=== PATIENT | female | born 1975 | race Caucasian/White ===

== ENCOUNTER 2022-04-07 11:58 | Outpatient (REF) | payer BC, SELFPAY ==
--- NOTE | ~2022-04-07 | XR_ITS ---
EXAMINATION: XR FOOT, RIGHT XR TOE, RIGHT CLINICAL INFORMATION: Fracture right toe. Follow-up. COMPARISON: Right foot 04/07/2022. TECHNIQUE: 3 views right foot and 2 views right toe. FINDINGS: Right Toe: There is an oblique, slowly healing fracture distal and proximal phalanges 3rd digit with callus formation. No additional fracture seen. The soft tissues are normal. Right Foot: The ankle mortise and subtalar joints are normal. Again visualized is an oblique fracture distal and proximal phalanges 5th digit with mild soft tissue swelling. No additional bony abnormality seen. The soft tissues are normal. XR/XR toe RT min 2V IMPRESSION: Oblique fracture distal and proximal phalanges 5th digit with mild soft tissue swelling. Unremarkable rest of the right foot.
--- NOTE | ~2022-04-07 | XR_ITS ---
EXAMINATION: XR FOOT, RIGHT XR TOE, RIGHT CLINICAL INFORMATION: Fracture right toe. Follow-up. COMPARISON: Right foot 04/07/2022. TECHNIQUE: 3 views right foot and 2 views right toe. FINDINGS: Right Toe: There is an oblique, slowly healing fracture distal and proximal phalanges 3rd digit with callus formation. No additional fracture seen. The soft tissues are normal. Right Foot: The ankle mortise and subtalar joints are normal. Again visualized is an oblique fracture distal and proximal phalanges 5th digit with mild soft tissue swelling. No additional bony abnormality seen. The soft tissues are normal. XR/XR foot RT 2V IMPRESSION: Oblique fracture distal and proximal phalanges 5th digit with mild soft tissue swelling. Unremarkable rest of the right foot.
== END 2022-04-07 11:59 | disposition home or self-care (01) ==
LOC: HO.HMGCX 11:58
PROVIDERS: Visit Provider Nurse Practitioner Acute Care
DX: S92.911A Unspecified fracture of right toe(s), initial encounter for closed fracture (principal); X58.XXXA Exposure to other specified factors, initial encounter; Y93.9 Activity, unspecified; Y92.9 Unspecified place or not applicable; Y99.9 Unspecified external cause status
CPT/HCPCS: 73620; 73660

== ENCOUNTER 2023-02-21 14:50 | Outpatient (REF) | payer BC, SELFPAY | END 2023-02-21 14:51 | disposition home or self-care (01) | LOC: HO.LAB 14:50 | PROVIDERS: PCP Family Medicine; Visit Provider Otolaryngology | DX: J30.89 Other allergic rhinitis (principal) | CPT/HCPCS: 36415; 82785; 86003 ==

== ENCOUNTER 2025-05-03 19:55 | Emergency (ER) | payer BC, SELFPAY ==
--- NOTE | ~2025-05-03 | XR_ITS ---
CLINICAL HISTORY: 4th digit laceration Radiographs of the left 4th digit, 3 views, 4 images Comparison: None available Findings: No fracture or dislocation. No degenerative change. Bone mineralization is normal. Soft tissue swelling /laceration. No radiopaque foreign body. Impression: No fracture. This document has been electronically signed by: Joselin Handy MD on 05/03/2025 20:56:54
[2025-05-03 19:57] VITALS: BP 151/93; PULSE 146; RESP 28; TEMP 36.8; O2SAT 98; BMI 22.7
--- NOTE | 2025-05-03 20:04 | ED.WOUNDLAC ---
HPI - Wound/Laceration General Chief Complaint: Wound/Laceration Stated Complaint: Finger lac Time Seen by Provider: 05/03/25 23:46 Source: patient Mode of arrival: ambulatory Limitations: no limitations History of Present Illness ED Provider: Dr. Maria L Naidu HPI narrative: 49-year-old female with extensive history of anxiety and depression, bipolar disorder presenting with left ring finger laceration that occurred immediately prior to arrival. Patient was using a trench trimmer fine and had grabbed onto the blade with her left hand causing a laceration on the palmar aspect of the distal phalanx in the left 4th digit. No other injuries. Patient reports severe anxiety and was unable to ?even look at it?. She does not take blood thinners. She occasionally vapes nicotine. Related Data Home Medications ?Medication ?Instructions ?Recorded ?Confirmed clonazepam 2 mg tablet 2 mg PO DAILY PRN 04/07/22 dextroamphetamine-amphetamine 20 1 tab PO BID 04/07/22 mg tablet escitalopram oxalate 20 mg tablet 20 mg PO DAILY 04/07/22 ferrous sulfate 325 mg (65 mg 325 mg PO Q OTHER DAY 04/07/22 iron) tablet,delayed release fluticasone propionate 50 1 spray intranasal DAILY 04/07/22 mcg/actuation nasal spray,suspension gabapentin 100 mg capsule 100 mg PO BID 04/07/22 gabapentin 300 mg capsule 300 mg PO BID 04/07/22 glycopyrrolate 1 mg tablet 1 mg PO DAILY PRN 04/07/22 lamotrigine 200 mg tablet 200 mg PO BID 04/07/22 lorazepam 0.5 mg tablet 0.5 mg PO DAILY PRN 04/07/22 meclizine 25 mg tablet 25 mg PO TID PRN dizziness 04/07/22 naratriptan 2.5 mg tablet 2.5 mg PO DIRECTED 04/07/22 zolpidem 10 mg tablet (Ambien) 10 mg PO BEDTIME PRN 04/07/22 Previous Rx's ?Medication ?Instructions ?Recorded ibuprofen 800 mg tablet 800 mg PO Q8H PRN pain #20 tabs 04/07/22 Allergies Allergy/AdvReac Type Severity Reaction Status Date / Time Sulfa (Sulfonamide Allergy Severe ANGIOEDEMA Verified 05/03/25 19:57 Antibiotics) (SULFA (SULFONAMIDE ANTIBIOTICS)) Review of Systems Review of Systems: Yes all other systems are reviewed and are negative (As per HPI) [facility] Past Medical History Attestation statement: The following information was validated with the patient. [facility] Narrative: Smoker, anxiety and bipolar disorder Social History Social History Smoked in Last 30 Days: No Use of substances other than those prescribed or required for medical reasons: No Advance Directives: No Advance Directives Information Provided: No Do you have a plan to hurt others: No Plan Patient : No Physical Exam Vital Signs: Vital Signs: Last Vital Signs Temp 98.2 F 05/03/25 19:57 Pulse 146 H 05/03/25 19:57 Resp 28 H 05/03/25 19:57 BP 151/93 H 05/03/25 19:57 Pulse Ox 98 05/03/25 19:57 O2 Del Method Room Air 05/03/25 19:57 BMI result Body Mass Index 22.7 GENERAL: Well-Appearing, conversant, no acute distress. SKIN: Normal skin color for ethnicity, no rashes noted, superficial laceration overlying the palmar aspect of the distal phalanx of the left ring finger, bleeding controlled, neurovascularly intact distally. HEENT: Normocephalic, atraumatic, no stridor, EOMI. CHEST: Heart regular rate and rhythm, no murmurs, symmetric chest rise and fall. PULMONARY: Clear to auscultation bilaterally, no labored breathing, no wheezes/rhales/rhonchi. ABDOMINAL: Soft, nondistended, nontender, positive bowel sounds in all quadrants. : Deferred. MUSCULOSKELETAL: Normal tone, full range of motion, no deformities, no peripheral edema. NEURO: Alert and oriented x3, CN II through XII intact, equal strength and sensation bilateral upper and lower extremities, no focal neurologic deficits. PSYCHIATRIC: Normal affect, fluid speech, good eye contact and appropriate demeanor. Course Course Course Narrative: This is an RME performed by Jagdish Mata CNP: Additional HPI, ROS, PE not included below will be deferred to primary provider. Patient is a 49-year-old female who presents emergency department with a friend she is anxious, tearful, crying and yelling, hyperventilating. She sustained an accidental laceration to the distal tip of the left 4th digit, on examination is 0.5 cm in length, it is well approximated, actively bleeding. Wet-to-dry dressing was placed. She reports severe pain. Was using an electric serrated trench trimmer fine, thought the battery had , however the blade was just stuck she reached in touched it subsequently lacerating the finger. Plan to obtain XR imaging to evaluate for acute osseous abnormality. She took her personal lorazepam 1 mg in the waiting room, she is with a friend who will be driving her home. She requires frequent redirection to calm her breathing. Tachycardic in the 140s, decreased to 115 once no longer hyperventilating. Reports tetanus vaccination is up-to-date within the past 5 years Medical Decision Making Medical Decision Making MDM Narrative: Patient presents today with chief complaint of laceration. Differential diagnosis would include foreign body, tendon or ligament injury, open fracture, wound infection, among many others. Laceration was thoroughly cleansed in the emergency department and probed for any foreign bodies. There were none. There is no evidence of tendon or ligament injury at this time based on physical exam. There is a normal neurovascular examination before and after repair. Wound care was discussed with patient as well as a specific time to have jules or sutures removed if necessary. Signs infection were also discussed and the patient was urged to come immediately back to the emergency department for reevaluation if they do occur. Differential Diagnosis Differential Diagnoses: The differential diagnosis associated with the presentation includes (As above) Independent Interpretation I performed an independent interpretation of an: Plain X-Ray Interpretation: No foreign body or fracture noted Radiology Impression Discussion of test interpretation with radiology: I have reviewed the radiologist's reading. Procedures Laceration Laceration 1: Site: hand (Ring finger) Side (If applicable): left Size (cm): 0.5 Description: flap Depth: simple, single layer Pre-repair: irrigated extensively Skin layer closed with: other (Steri-Strips) Number of sutures: 1 Discharge Plan Discharge Clinical Impression: Laceration of left ring finger Qualifiers: Encounter type: initial encounter Damage to nail status: without damage Foreign body presence: without foreign body Qualified Code(s): S61.215A - Laceration without foreign body of left ring finger without damage to nail, initial encounter Patient Disposition: Home, Self-Care Instructions: Skin Adhesive Care (ED) Additional Instructions: Keep your wound clean and dry for the next 24 hours. After that you may get the area wet but pat it dry and do not submerge it in water such as doing dishes or willing into a pool. Return to the emergency department with any redness that tracks away from the wound, pus drainage from the wound or fevers greater than 100?. Prescriptions: No Action glycopyrrolate 1 mg tablet 1 mg PO DAILY PRN gabapentin 100 mg capsule 100 mg PO BID gabapentin 300 mg capsule 300 mg PO BID dextroamphetamine-amphetamine 20 mg tablet 1 tab PO BID escitalopram oxalate 20 mg tablet 20 mg PO DAILY lamotrigine 200 mg tablet 200 mg PO BID naratriptan 2.5 mg tablet 2.5 mg PO DIRECTED clonazepam 2 mg tablet 2 mg PO DAILY PRN meclizine 25 mg tablet 25 mg PO TID PRN (Reason: dizziness) ferrous sulfate 325 mg (65 mg iron) tablet,delayed release (DR/EC) 325 mg PO Q OTHER DAY fluticasone propionate 50 mcg/actuation spray,suspension 1 spray intranasal DAILY Rx Instructions: administer into each nostril lorazepam 0.5 mg tablet 0.5 mg PO DAILY PRN zolpidem [Ambien] 10 mg tablet 10 mg PO BEDTIME PRN ibuprofen 800 mg tablet 800 mg PO Q8H PRN (Reason: pain) Qty: 20 0RF Print Language: Turkmen
[2025-05-03 23:49] VITALS: BP 132/78; PULSE 104; TEMP 36.7; O2SAT 99
[2025-05-04 00:28] VITALS: BP 132/78; PULSE 104; RESP 20; TEMP 36.7; O2SAT 99
--- NOTE | 2025-05-04 00:28 | PC.NURSE ---
reviewed discharge instructions with pt, pt verbalized understanding, no sign of distress
== END 2025-05-04 00:29 | disposition home or self-care (01) ==
PROVIDERS: Emergency Provider Emergency Medicine
DX: S61.215A Laceration without foreign body of left ring finger without damage to nail, initial encounter (principal); F41.9 Anxiety disorder, unspecified; W29.3XXA Contact with powered garden and outdoor hand tools and machinery, initial encounter; Y93.H2 Activity, gardening and landscaping; Y92.9 Unspecified place or not applicable; Y99.8 Other external cause status; F17.200 Nicotine dependence, unspecified, uncomplicated; Z79.899 Other long term (current) drug therapy
CPT/HCPCS: 12001; 73140; 99283; 99284

== ENCOUNTER → 2025-05-03 20:07 | Outpatient (BNV) | payer BC, SELFPAY | PROVIDERS: Visit Provider Radiology Diagnostic Radiology | DX: S61.215A Laceration without foreign body of left ring finger without damage to nail, initial encounter (principal) | CPT/HCPCS: 73140 ==

== ENCOUNTER 2025-07-14 15:56 | Outpatient (AMB) | payer BC, SELFPAY ==
--- OUTSIDE RECORDS SUMMARY | 2025-07-14 19:11 | XMS_ITS | Clinical Summary ---
Author Organization [facility] Address [address] [place] [phone] Phone Care Team Providers Care Cancer Center Director Name Role Phone Brandon Wisdom MD Primary Care Provider + Allergies Active Allergy Reactions Criticality Noted Date Comments Bupropion Hcl 05/15/2023 Other Reaction(s): generic john muslce aches Other reaction(s): generic john muslce aches Cat Dander Sneezing 11/27/2024 Runny nose Dog Dander Sneezing 11/27/2024 Runny nose Erythromycin 05/15/2023 Other Reaction(s): diarrhea Other reaction(s): diarrhea Grass Pollen Other (See Comments) 11/27/2024 House Dust Other (See Comments) 11/27/2024 Penicillin 05/15/2023 Phlebitis Tolerated 1 gm Cefazolin IV for surgical prophylaxis 12/08/24 Pollen Extracts Other (See Comments) 11/27/2024 Ragweed Other (See Comments) 11/27/2024 Sulfa (Sulfonamide Antibiotics) Anaphylaxis High 05/15/2023 Other reaction(s): anaphylaxis Venlafaxine Angioedema 05/15/2023 Other reaction(s): angioedema Medications lamoTRIgine (LAMICTAL) 200 MG IMMEDIATE release tablet Take 200 mg by mouth daily. Active clonazePAM (KLONOPIN) 2 MG tablet nightly at bedtime. Active ADDERALL 20 mg Tab tablet 2 (two) times a day. Active gabapentin (NEURONTIN) 300 MG capsule Take 300 mg by mouth. 09/18/2024 Active levonorgestreL (LILETTA) 20.4 mcg/24 hr (8 yrs) 52 mg IUD Activ e LORazepam (ATIVAN) 1 MG tablet as needed. Active cyanocobalamin, vitamin B-12, 250 MCG tablet Take 250 mcg by mouth daily. Active cholecalciferol (VITAMIN D3) 2,000 unit capsule Take by mouth daily. Active TURMERIC ORAL Take by mouth. Active magnesium oxide 250 mg (150 mg elemental) Tab Take 250 mg by mouth daily. 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, subsequent encounter (Primary Dx) from Last 3 Months Family History Medical History Relation Comments Anesthesia problems Mother on 02/12/2022 from cardiac arrest hours after having cataract surgery Relation Status Comments Mother Social History Tobacco Use Types Packs/Day Years Used Date Smoking Tobacco: Former Cigarettes S tarted: 2021 Smokeless Tobacco: Never Comments:Was a social smoker and then after 02/12/2022 a pack a day; currently vape Alcohol Use Standard Drinks/Week Comments Yes 1 (1 standard drink = 0.6 oz pur e alcohol) Socially Education Answer Date Recorded Are you interested in more education? Not on reza e 11/05/2024 Are you concerned about learning? Not on file 11/05/2024 No 11/05/2024 No 11/05/2024 Digital Access Answer Date Recorded No 11/05/2024 No 11/05/2024 Reliable internet access at home? Not on file 11/05/2024 Device with a working camera? Not on file Intimate Partner Violence Answer Date R ecorded Are you denied basic needs s uch as food, clothing, or medical care? No 12/08/2024 In the past 12 months have y ou been in a relationship with a person who hurts, threatens, or tries to control you? No 12/08/2024 Are you denied basic needs s uch as food, clothing, or medical care? No 12/08/2024 In the past 12 months have y ou been in a relationship with a person who hurts, threatens, or tries to control you? No 12/08/2024 Comments No Sex and Gender Information Value Date Recorded Sex Assigned at Female 11/26/2024 8:24 PM EST Legal Sex Female 11:58 AM EST Gender Identity Female 11/26/2024 8:24 PM EST Sexual Orientation Straight 11/26/2024 8: 24 PM EST Last Filed Vital Signs Vital Sign Reading Time Taken Comments Blood Pressure 120/62 12/08/2024 1:15 PM EST Pulse 86 12/08/2024 1:15 PM EST Temperature 36.3 C (97.3 F) 12/08/2024 12:45 PM EST Respiratory Rate 14 12/08/2024 1:15 PM EST Oxygen Saturation 97% 12/08/2024 1:15 PM EST Inhaled Oxygen Concentration - - Weight 55.3 kg (122 lb) 11/27/2024 3:36 PM EST Height 160 cm (5' 3 ) 11/27/2024 3:36 PM EST Body Mass Index 21.61 11/27/2024 3:36 PM EST Plan of Treatment Health Maintenance Due Date Last Done Comments LIPID PANEL 1975 DEPRESSION SCREENING 1987 SMOKING Hx and SMOKELESS TOBACCO SCREENING 1988 HEPATITIS C SCREENING 1993 HIV ONE-TIME SCREENING (18-65 YEARS) 1993 PAP SMEAR 1996 MAMMOGRAM 2015 COLOGUARD 2020 COLONOSCOPY 2020 COLORECTAL CANCER SCREENING 2020 FIT TEST 2020 FOBT 2020 SIGMOIDOSCOPY 2020 VIRTUAL COLONOSCOPY 2020 INFLUENZA VACCINE (#1) 2025 , 09/13/2023, 07/05/2022, Additional history exists COVID-19 VACCINE ( season) 2025 09/08/2021, 02/10/2021, 01/19/2021 Adult Td,Tdap Booster 09/07/2034 09/07/2024, 023 HEPATITIS A VACCINES Aged Out No long er eligible based on patient's age to complete this topic HIB VACCINES Aged Out No longer eligi ble based on patient's age to complete this topic MENINGOCOCCAL VACCINES (ACWY) Aged Out No longer eligible based on patient's age to complete this topic MENINGOCOCCAL VACCINES (B) Aged Out N o longer eligible based on patient's age to complete this topic PNEUMOCOCCAL VACCINES (0-49 years) Aged Out No longer eligible based on patient's age to complete this topic Medical Devices Implanted Type Area Cylinder Tester Device Identifier Shelf Expiration Date Model / Serial / Lot Iud Control Device Interstem STANDARD Description:Right flank Protector Nerve 40x3.5mm Porcine Multi Laminar Extracellular Matrix Wrap Injured Periph Reinforce Coaptation Site Prevent - [id number] Implanted:Qty: 1 on 12/08/2024 by Sandra Chi MD at [facility] Right: Wrist [employer] 06/29/2025 [id number] / / [id number] Description:The implant type , laterality ( when applicable) size, expiration date, and package integrity have been visually and verbally confirmed by the Surgeon, Circulating RN, and Scrub Personnel. 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 It is not the complete legal health record.[facility]
--- OUTSIDE RECORDS SUMMARY | 2025-07-14 19:11 | XMS_ITS | Encounter Summary ---
Author Organization [facility] Address [address] [place] [address] [place] [phone] Phone Care Team Providers Care Resident Care Aide Name Role Phone Brandon Wisdom MD Primary Care Provider + Encounter Details Date Type Department Care Team (Late st Contact Info) Description 12/08/2024 Procedure Pass [facility] [address] [place] [address] Social History Tobacco Use Types Packs/Day Years [...] Orientation Straight 11/26/2024 8: 24 PM EST documented as of this encounter Plan of Treatment Not on file documented as of this encounter Visit Diagnoses Not on filedocumented in this encounter Care Teams Resident Care Aide Relationship Specialty Start Date End Date Brandon Wisdom MD [address] [place] [phone] PCP - General Family Medicine 11/05/24 documented as of this encounter Additional Source Comments The information contained in this document represents components of the legal health record. It is not the complete legal health record.[facility]
== END 2025-07-14 16:29 | disposition home or self-care (01) ==
LOC: HO.HMGAL 15:56
PROVIDERS: PCP Family Medicine; Visit Provider Registered Nurse Emergency
DX: J30.89 Other allergic rhinitis (principal)
CPT/HCPCS: 95117; 95165

== ENCOUNTER 2025-08-11 16:10 | Outpatient (AMB) | payer BC, SELFPAY ==
--- OUTSIDE RECORDS SUMMARY | 2025-08-11 19:20 | XMS_ITS | Encounter Summary ---
Author Organization [facility] Address [address] [place] [address] [place] [phone] Phone Care Team Providers Care Mortgage Broker Name Role Phone Brandon Wisdom MD Primary Care Provider + Encounter Details Date Type Department Care Team (Late st Contact Info) Description 12/08/2024 Procedure Pass [facility] [address] [place] [address] Social History Tobacco Use Types [...] on filedocumented in this encounter Care Teams Mortgage Broker Relationship Specialty Start Date End Date Brandon Wisdom MD [address] [place] [id number] PCP - General Family Medicine 11/05/24 documented as of this encounter Additional Source Comments The information contained in this document represents components of the legal health record. It is not the complete legal health record.[facility]
== END 2025-08-11 16:11 | disposition home or self-care (01) ==
LOC: HO.HMGAL 16:10
PROVIDERS: PCP Family Medicine; Visit Provider Registered Nurse Emergency
DX: J30.89 Other allergic rhinitis (principal)
CPT/HCPCS: 95117; 95165

== ENCOUNTER 2025-08-25 16:15 | Outpatient (AMB) | payer BC, SELFPAY ==
--- OUTSIDE RECORDS SUMMARY | 2025-08-19 23:59 | XMS_ITS | Continuity of Care Document ---
Author Organization [facility] Address [address] [place] [address]- Care Team Providers Care Freezing Machine Operator Name Role Phone Alyx IZQUIERDO, Brandon Corona Primary Care Physician [id number] Date(s): 07/20/25 - 08/19/25 [facility] [address] [id number] Encounter Type: Triage Allergies, Adverse Reactions, Alerts Substance Criticality Severity Reaction Reaction Severity Status erythromycin diarrhea Active venlafaxine angioedema Active sulfa drugs anaphylaxis Active Wellbutrin generic john mus lce aches Active penicillin G aqueous phlebitis Active Animal Dander Sinus symptoms A ctive Cats Sinus symptoms Activ e Dogs Sinus symptoms Activ e Dust Sinus symptoms Activ e Grass sinus symptoms Activ e Hay sinus symptoms Activ e Pollen Sinus symptoms Activ e Ragweed Sinus symptoms Activ e Other Environmental Allergy perfumes, trees Active Immunizations Given and Recorded Vaccine Date Status Refusal Reason tetanus/diphtheria/pertussis, acel(Tdap) 09/07/24 Given tetanus/diphtheria/pertussis, acel(Tdap) 10/26/13 Given influenza virus vaccine, inactivated 09/07/24 Give n influenza virus vaccine, inactivated 09/13/23 Chris rded influenza virus vaccine, inactivated 07/05/22 Chris rded influenza virus vaccine, inactivated 08/10/21 Give n influenza virus vaccine, inactivated 07/10/20 Chris rded influenza virus vaccine, inactivated 07/06/20 Chris rded influenza virus vaccine, inactivated 07/15/19 Chris rded influenza virus vaccine, inactivated 08/17/18 Chris rded influenza virus vaccine, inactivated 1 08/10/17 Gi hamzah influenza virus vaccine, inactivated 2 08/09/14 Gi hamzah tetanus-diphtheria toxoids (Td) 01/14/23 Recorded tetanus-diphtheria toxoids (Td) 3 10/24/03 Given SARS-CoV-2 (COVID-19) mRNA BNT-162b2 vac 09/08/21 Recorded SARS-CoV-2 (COVID-19) mRNA BNT-162b2 vac 02/10/21 Recorded SARS-CoV-2 (COVID-19) mRNA BNT-162b2 vac 01/19/21 Recorded Influenza Virus Vaccine (oldterm) 4 07/28/13 Given Influenza Virus Vaccine (oldterm) 5 10/19/09 Given FluLaval (oldterm) 6 08/29/10 [facility] 3Admin Note: historical data [facility] 5[facility] Note: per pt [facility] 6Admin Note: BIOMEDICAL OLGA given by LN Medications Adderall 20 mg oral tablet 1 tablet = 20 mg, By Mouth, 2 times a day, # 60 tablet, 0 Refills, Maintenance, 07/05/22 4:39:00 AM EDT, Tablet, Partial fill upon patient request if the prescription is for a schedule II opioid drug. Start Date: 07/05/22 Status: Ordered Medication Dispense Status: Completed Quantity: 60.0 Unit: tablet Total Allowed Fills: 1 Fills Dispensed: 0 Ambien 10 mg oral tablet 1 tablet = 10 mg, By Mouth, Daily at bedtime, PRN as needed for insomnia, 0 Refills, Maintenance, 02/25/23 12:19:00 PM EDT, Partial fill upon patient request if the prescription is for a schedule II opioid drug. Start Date: 02/25/23 Status: Ordered Medication Dispense Status: Completed Total Allowed Fills: 1 Fills Dispensed: 0 Calcium, Magnesium and Zinc oral capsule 1 capsule, By Mouth, Daily, 0 Refills, Maintenance, 07/05/25 3:39:00 PM EDT, Partial fill upon patient request if the prescription is for a schedule II opioid drug. Start Date: 07/05/25 Status: Ordered Medication Dispense Status: Completed Total Allowed Fills: 1 Fills Dispensed: 0 Cholecalciferol one tablet, By Mouth, Daily, 0 Refills, Maintenance, 02/15/23 11:46:00 AM EDT, Partial fill upon patient request if the prescription is for a schedule II opioid drug. Start Date: 02/15/23 Status: Ordered Medication Dispense Status: Completed Total Allowed Fills: 1 Fills Dispensed: 0 clonazepam 2 mg oral tablet 1 tablet = 2 mg, By Mouth, Daily at bedtime, # 30 tablet, 0 Refills, Maintenance, 01/23/11 2:28:58 PM EDT, Tablet Start Date: 01/23/11 Status: Ordered Medication Dispense Status: Completed Quantity: 30.0 Unit: tablet Total Allowed Fills: 1 Fills Dispensed: 0 dicyclomine 20 mg oral tablet 1 tablet = 20 mg, By Mouth, 4 times a day, PRN Other abdominal cramping, # 60 tablet, 5 Refills, Maintenance, 03/02/25 7:09:00 AM EDT, [facility]/pharmacy #[id number], Partial fill upon patient request if the prescription is for a schedule II opioid drug., 160, cm, 03/02/25 7:00:00 EDT, Height, 57, kg, 08/10/246:38:00 EDT, Dry Weight Start Date: 03/02/25 Status: Ordered Medication Dispense Status: Completed Quantity: 60.0 Unit: tablet Total Allowed Fills: 6 Fills Dispensed: 0 ferrous sulfate 325 mg oral enteric coated tablet 1, tablet, By Mouth, Every other day, X90 DAYS,INSTR:TAKE WITH VITAMIN C TO HELP ABSORPTION, # 45 tablet, Refills 0, Tot. Refills 0, Maintenance, 04/20/25 7:03:00 AM EDT, Route to Pharmacy Electronically, [facility]/pharmacy #[id number], 160, cm, 03/02/25 7:00:00 EDT, Height, 57, kg, 08/10/24 6:38:00 EDT, Dry Weight Start Date: 04/20/25 Status: Ordered Medication Dispense Status: Completed Quantity: 45.0 Unit: tablet Total Allowed Fills: 1 Fills Dispensed: 0 gabapentin 300 mg oral capsule 1, capsule, By Mouth, 2 times a day, # 180 capsule, Refills 3, Maintenance, 04/17/25 6:40:00 AM EDT,Route to Pharmacy Electronically, [id number], 160, cm, 03/02/25 7:00:00 EDT, Height, 57, kg, 08/10/24 6:38:00 EDT, Dry Weight Start Date: 04/17/25 Status: Ordered Medication Dispense Status: Completed Quantity: 180.0 Unit: capsule Total Allowed Fills: 1 Fills Dispensed: 0 lamotrigine 200 mg oral tablet 1 tablet = 200 mg, By Mouth, Daily in AM, # 180 tablet, 0 Refills, Maintenance, 08/01/23 11:40:00 AMEDT, Tablet, Partial fill upon patient request if the prescription is for a schedule II opioid drug. Start Date: 08/01/23 Status: Ordered Medication Dispense Status: Completed Quantity: 180.0 Unit: tablet Total Allowed Fills: 1 Fills Dispensed: 0 lorazepam 1 mg oral tablet 1 tablet = 1 mg, By Mouth, 3 times a day, PRN as needed for anxiety, # 30 tablet, 0 Refills, Maintenance, 08/21/10 4:05:32 PM EDT Start Date: 08/21/10 Status: Ordered Medication Dispense Status: Completed Quantity: 30.0 Unit: tablet Total Allowed Fills: 1 Fills Dispensed: 0 Mirena 52 mg intrauteral device 1 each = 52 mg, Once, 0 Refills, Maintenance, 02/25/13 3:10:00 PM EDT Start Date: 02/25/13 Status: Ordered Medication Dispense Status: Completed Total Allowed Fills: 1 Fills Dispensed: 0 naratriptan 2.5 mg oral tablet See Instructions, TAKE 1 TABLET DAILY NEEDED FOR MIGRAINE HEADACHE (MAY REPEAT ONCE IN 4 HOURS IF NEEDED), # 27 tablet, 3 Refills, Maintenance, 07/22/22 2:10:00 PM EDT, [facility] Start Date: 07/22/22 Status: Ordered Medication Dispense Status: Completed Quantity: 27.0 Unit: tablet Total Allowed Fills: 1 Fills Dispensed: 0 Prelief 2 tablets, By Mouth, Daily in AM, 0 Refills, Maintenance, 02/07/24 5:57:00 PM EDT, Partial fill uponpatient request if the prescription is for a schedule II opioid drug. Start Date: 02/07/24 Status: Ordered Medication Dispense Status: Completed Total Allowed Fills: 1 Fills Dispensed: 0 Turmeric 1 capsule, By Mouth, Daily, 0 Refills, Maintenance, 07/05/25 3:39:00 PM EDT, Partial fill upon patient request if the prescription is for a schedule II opioid drug. Start Date: 07/05/25 Status: Ordered Medication Dispense Status: Completed Total Allowed Fills: 1 Fills Dispensed: 0 Vitamin B Complex oral tablet, extended release 1 capsule, By Mouth, Daily, 0 Refills, Maintenance, 07/05/25 3:39:00 PM EDT, Partial fill upon patient request if the prescription is for a schedule II opioid drug. Start Date: 07/05/25 Status: Ordered Medication Dispense Status: Completed Total Allowed Fills: 1 Fills Dispensed: 0 XyliMelts oral tablet See Instructions, Use as needed for dry mouth, # 100 tablet, 5 Refills, Maintenance, 07/16/22 3:27:00 PM EDT, [facility] #[id number], Partial fill upon patient request if the prescription is for a schedule II opioid drug., Use as needed for dry mouth, 160, cm, 07/04/22 16:42:00 EDT, Height, 70,kg, 06/21/22 11:09:00 EDT, Dry Weight Start Date: 07/16/22 Status: Ordered Medication Dispense Status: Completed Quantity: 100.0 Unit: tablet Total Allowed Fills: 6 Fills Dispensed: 0 Problem List Condition Confirmation Course Effective Dates Status Health St atus Informant [D]Insomnia Confirmed 08/22/09 Active Anxiety States Confirmed 08/21/10 Active Bipolar disorder Confirmed Active Chronic headache disorder Confirmed 10/24/09 Active Depression 1 Confirmed Active Diarrhea Confirmed Active Gastro-esophageal reflux 2 Confirmed Active IBS - Irritable bowel syndrome Confirmed Active Idiopathic hypersomnia Confirmed Active Lower back pain Confirmed Active Lower abdominal pain Confirmed Active Melasma Confirmed 04/17/12 Active Overactive bladder Confirmed 04/27/13 Active Left leg pain Confirmed Active Bright red rectal bleeding Confirmed Active RLS (restless legs syndrome) Confirmed Active Shortness of breath Confirmed 08/22/09 Active Back skin lesion Confirmed Active Vertigo Confirmed Active 1followed by psychaitry 2EGD February Dr guerra Social History Social History Type Response Smoking Status 5-9 cigarettes (betw een 1/4 to 1/2 pack)/day in last 30 days;Former smoker, quit more than 30 days ago; Type: Cigarettes; Other: started in college - quit 2008, occasional with stress; Stopped at age: 48; entered on: 07/05/25 Sexual Orientation Self described orien tation: ; Straight or heterosexual Sex Sex Representation Female (finding) Implantable Device List Procedure Provider Procedure Date Device Type Site Insertion Sacral Nerve Stimulator Jean Pierre Maynard MD 02/12/24 Unknown Back Device Identifier Serial Number Lot or Batch Number Manufacturing Date Expiration Date Distinct Identification Code MRI Safety Implantable Status Assigning Authority Unknown [id number] Unknown Unknown 05/10/25 Unknown Unknown Active Unknown Procedure Provider Procedure Date Device Type Site Insertion Sacral Nerve Stimulator Jean Pierre Maynard MD 02/12/24 Unknown Back Device Identifier Serial Number Lot or Batch Number Manufacturing Date Expiration Date Distinct Identification Code MRI Safety Implantable Status Assigning Authority Unknown Unknown [id number] Unknown 07/08/25 Unknown Unknown Active Unk nown Patient Care team information Care Team Personnel Name: Brandon Wisdom MD Position: [facility] Physician - Primary Care Member Role: PCP Address: [address] [place] [address]- Telecom: Name: Ami Britton RN Position: [facility] Outreach Member Role: Primary Care Nurse Care Team Related Persons Name: KATIE MANCERA Name: YANIQUE MANCERA Name: ROSALIE MANCERA Name: AARON ESTRELLA Name: SELENE CRUZ Insurance Providers Guarantor name: ELENA MANCERA Health Plan Information #: 1 [facility] Payer Identifier: NA Member Number: [id number] Group Number: [id number] Subscriber Identifier: NA Relationship to Subscriber: self Coverage Type: NA Coverage Verification Date: NA Telecom: NA Address: NA
--- OUTSIDE RECORDS SUMMARY | 2025-08-20 23:59 | XMS_ITS | Continuity of Care Document ---
Author Organization [facility] Address [address] [place] [address]- Care Team Providers Care Insurance Claim Representative Name Role Phone Alyx IZQUIERDO, Brandon Corona Primary Care Physician [phone] Encounter [facility] NBR [id number] Date(s): 07/21/25 - 08/20/25 [facility] Adult [address] [place] [address]- Encounter Type: Triage Allergies, Adverse Reactions, Alerts Substance Criticality Severity Reaction Reaction Severity Status erythromycin diarrhea Active Grass sinus symptoms Activ e venlafaxine angioedema Active sulfa drugs anaphylaxis Active Wellbutrin generic john mus lce aches Active penicillin G aqueous phlebitis Active Animal Dander Sinus symptoms A ctive Cats Sinus symptoms Activ e Dogs Sinus symptoms Activ e Dust Sinus symptoms Activ e Ragweed Sinus symptoms Activ e Other Environmental Allergy perfumes, trees Active Hay sinus symptoms Activ e Pollen Sinus symptoms Activ e Immunizations Given and Recorded Vaccine Date Status [...] 5 Refills, Maintenance, 03/02/25 7:09:00 AM EDT, [facility]/pharmacy #[id number], Partial fill upon patient request if [...] 7:03:00 AM EDT, Route to Pharmacy Electronically, [facility]/pharmacy #[id number], 160, cm, 03/02/25 7:00:00 EDT, Height, 57, kg, 08/10/24 6:38:00 EDT, Dry Weight Start Date: 04/20/25 Status: Ordered Medication Dispense Status: Completed Quantity: 45.0 Unit: tablet Total Allowed Fills: 1 Fills Dispensed: 0 gabapentin 300 mg oral capsule 1, capsule, By Mouth, 2 times a day, # 180 capsule, Refills 3, Maintenance, 04/17/25 6:40:00 AM EDT,Route to Pharmacy Electronically, [id number], 160, cm, 03/02/25 7:00:00 EDT, Height, 57, [...] 5 Refills, Maintenance, 07/16/22 3:27:00 PM EDT, [facility] #[id number], Partial fill upon patient request if the [...] MRI Safety Implantable Status Assigning Authority Unknown [id number] Unknown Unknown 05/10/25 Unknown Unknown Active Unknown Procedure Provider Procedure Date Device Type Site Insertion Sacral Nerve Stimulator Jean Pierre Maynard MD 02/12/24 Unknown Back Device Identifier Serial Number Lot or Batch Number Manufacturing Date Expiration Date Distinct Identification Code MRI Safety Implantable Status Assigning Authority Unknown Unknown [id number] Unknown 07/08/25 Unknown Unknown Active Unk solitarion Patient Care team information Care Team Personnel Name: Brandon Wisdom MD [facility] Phys[facility] - Primary Care Member Role: PCP Address: [address] [place] [address]- Telecom: Name: Ami Britton RN [facility] Outreach Member Role: Primary Care Nurse Care Team Related Persons Name: KATIE MANCERA Name: YANIQUE MANCERA Name: ROSALIE MANCERA Name: AARON ESTRELLA Name: SELENE CRUZ Insurance Providers Guarantor name: ELENA MANCERA Health Plan Information #: 1 [facility] Payer Identifier: NA Member Number: [id number] Group Number: [id number] Subscriber Identifier: NA Relationship to Subscriber: self Coverage Type: NA Coverage Verification Date: NA Telecom: NA Address: NA
--- OUTSIDE RECORDS SUMMARY | 2025-08-25 20:11 | XMS_ITS | Clinical Summary ---
Author Organization [facility] Address [address] [place] [address] Phone Care Team Providers Care Operations Technician Name Role Phone Brandon Wisdom MD Primary [...] Anxiety states 08/21/2010 Chronic headache disorder 10/24/2009 Family History Medical History Relation Comments Anesthesia [...] VIRTUAL COLONOSCOPY 2020 INFLUENZA VACCINE (#1) 2025 4, 09/13/2023, 07/05/2022, Additional history exists COVID-19 VACCINE (2024- season) 2025 09/08/2021, 02/10/2021, 01/19/2021 Adult Td,Tdap [...] this topic Medical Devices Implanted Type Area Machine Tool Electrician Device Identifier Shelf Expiration Date Model / Serial / Lot Iud Control Device Interstem STANDARD Description:Right flank Protector Nerve 40x3.5mm Porcine Multi Laminar Extracellular Matrix Wrap Injured Periph Reinforce Coaptation Site Prevent - [id number] Implanted:Qty: 1 on 12/08/2024 by Sandra Chi MD at [facility] [place] Right: Wrist [employer] 06/29/2025 [id number] / / [id number] Description:The implant type , laterality ( when applicable) size, expiration date, and package integrity have been visually and verbally confirmed by the Surgeon, Circulating RN, and Scrub Personnel. Insurance [facility] [place] [address] [place] [address] Member Subscriber Plan / Payer ( fective 2024-Present) Name:Monse Singh Relation to Subscriber:Self Name:Monse Singh Payer ID:[id number] (NAIC) Type:HMO Address: [address] [facility] Member Subscriber Plan / Payer ( fective 2024-Present) Name:Monse Singh Relation to Subscriber:Self Name:Monse Singh Payer ID:[id number] (NAIC) Type:HMO Address: [address] [place], [place] Advance Directives For more information, please contact: [phone] (9AM - 5PM [facility], Saturday-Saturday) Documents on File Type Date Recorded Patient Drupal Web Developer Expl anation Healthcare Proxy 12/11/2024 4:22 PM Care Teams Operations Technician Relationship Specialty Start Date End Date Brandon Wisdom MD [address] [place] [address] PCP - General Family Medicine 11/05/24 Additional Source Comments The information contained in this document represents components of the legal health record. It is not the complete legal health record.[facility]
--- OUTSIDE RECORDS SUMMARY | 2025-08-25 20:11 | XMS_ITS | Encounter Summary ---
Author Organization [facility] Address [address] [place] [address] [place] [address] Phone Care Team Providers Care Sales Market Leader Name Role Phone Brandon Wisdom MD Primary Care Provider + Encounter Details Date Type Department Care Team (Late st Contact Info) Description 12/08/2024 Procedure Pass [facility] [address] [place] [address] Social History Tobacco Use Types [...] on filedocumented in this encounter Care Teams Sales Market Leader Relationship Specialty Start Date End Date Brandon Wisdom MD [address] [place] [address] PCP - General Family Medicine 11/05/24 documented as of this encounter Additional Source Comments The information contained in this document represents components of the legal health record. It is not the complete legal health record.[facility]
== END 2025-08-25 16:15 | disposition home or self-care (01) ==
LOC: HO.HMGAL 16:15
PROVIDERS: PCP Family Medicine; Visit Provider Registered Nurse Emergency
DX: J30.89 Other allergic rhinitis (principal)
CPT/HCPCS: 95117; 95165

== ENCOUNTER 2025-09-20 16:15 | Outpatient (AMB) | payer BC, SELFPAY ==
--- OUTSIDE RECORDS SUMMARY | 2025-09-20 20:23 | XMS_ITS | Clinical Summary ---
Author Organization [facility] Address [address] [place] [address] Phone Care Team Providers Care Shook Machine Operator Name Role Phone Brandon Wisdom MD Primary [...] this topic Medical Devices Implanted Type Area Health Informatics Advisor Device Identifier Shelf Expiration Date Model / Serial / Lot Iud Control Device Interstem STANDARD Description:Right flank Protector Nerve 40x3.5mm Porcine Multi Laminar Extracellular Matrix Wrap Injured Periph Reinforce Coaptation Site Prevent - [id number] Implanted:Qty: 1 on 12/08/2024 by Sandra Chi MD at [facility] [place] Right: Wrist [employer] 06/29/2025 [id number] / / [id number] Description:The implant type , laterality ( when applicable) size, expiration date, and package integrity have been visually and verbally confirmed by the Surgeon, Circulating RN, and Scrub Personnel. Insurance [facility] [place] [id number] [place] [id number] Member Subscriber Plan / Payer ( fective 2024-Present) Name:Monse Singh Relation to Subscriber:Self Name:Monse Singh Payer ID:[id number] (NAIC) Type:HMO Address: [address] [facility] Member Subscriber Plan / Payer ( fective 2024-Present) Name:Monse Singh Relation to Subscriber:Self Name:Monse Singh Payer ID:[id number] (NAIC) Type:HMO Address: [address] [place], [place] Advance Directives For more information, please contact: [phone] (9AM - 5PM [facility], Saturday-Saturday) Documents on File Type Date Recorded Patient Station Detective Expl anation Healthcare Proxy 12/11/2024 4:22 PM Care Teams Shook Machine Operator Relationship Specialty Start Date End Date Brandon Wisdom MD [address] [place] [address] PCP - General Family Medicine 11/05/24 Additional Source Comments The information contained in this document represents components of the legal health record. It is not the complete legal health record.[facility]
--- OUTSIDE RECORDS SUMMARY | 2025-09-20 20:23 | XMS_ITS | Encounter Summary ---
Author Organization [facility] Address [address] [place] [address] [place] [address] Phone Care Team Providers Care Cooperative Education Coordinator Name Role Phone Brandon Wisdom MD Primary Care Provider + Encounter Details Date Type Department Care Team (Late st Contact Info) Description 12/08/2024 Procedure Pass [facility] [address] [place] [address] Social History Tobacco Use Types [...] on filedocumented in this encounter Care Teams Cooperative Education Coordinator Relationship Specialty Start Date End Date Brandon Wisdom MD [address] [place] [address] PCP - General Family Medicine 11/05/24 documented as of this encounter Additional Source Comments The information contained in this document represents components of the legal health record. It is not the complete legal health record.[facility]
== END 2025-09-20 16:15 | disposition home or self-care (01) ==
LOC: HO.HMGAL 16:15
PROVIDERS: PCP Family Medicine; Visit Provider Registered Nurse Emergency
DX: J30.89 Other allergic rhinitis (principal)
CPT/HCPCS: 95117; 95165

== ENCOUNTER 2025-09-27 16:16 | Outpatient (AMB) | payer BC, SELFPAY ==
--- OUTSIDE RECORDS SUMMARY | 2025-09-27 18:42 | XMS_ITS | Encounter Summary ---
Author Organization [facility] Address [address] [place] [address] [place] [address] Phone Care Team Providers Care Plaster Pattern Caster Name Role Phone Brandon Wisdom MD Primary Care Provider + Encounter Details Date Type Department Care Team (Late st Contact Info) Description 12/08/[address] [facility] [address] [place] [address] Social History Tobacco Use Types [...] on filedocumented in this encounter Care Teams Plaster Pattern Caster Relationship Specialty Start Date End Date Brandon Wisdom MD [address] [place] [address] PCP - General Family Medicine 11/05/24 documented as of this encounter Additional Source Comments The information contained in this document represents components of the legal health record. It is not the complete legal health record.[facility]
--- OUTSIDE RECORDS SUMMARY | 2025-09-27 18:42 | XMS_ITS | Clinical Summary ---
Author Organization [facility] Address [address] [place] [address] Phone Care Team Providers Care Icu Nurse Name Role Phone Brandon Wisdom MD Primary [...] this topic Medical Devices Implanted Type Area Piling Cutter Device Identifier Shelf Expiration Date Model / Serial / Lot Iud Control Device Interstem STANDARD Description:Right flank Protector Nerve 40x3.5mm Porcine Multi Laminar Extracellular Matrix Wrap Injured Periph Reinforce Coaptation Site Prevent - [id number] Implanted:Qty: 1 on 12/08/2024 by Sandra Chi MD at [facility] [place] Right: Wrist [employer] 06/29/2025 [id number] / / [id number] Description:The implant type , laterality ( when applicable) size, expiration date, and package integrity have been visually and verbally confirmed by the Surgeon, Circulating RN, and Scrub Personnel. Insurance [facility] [place] [address] [place] [address] [place] [address] Member Subscriber Plan / Payer ( fective 2024-Present) Name:Monse Singh Relation to Subscriber:Self Name:Monse Singh Payer ID:[id number] (NAIC) Type:HMO Address: [address] [facility] Member Subscriber Plan / Payer ( fective 2024-Present) Name:Monse Singh Relation to Subscriber:Self Name:Monse Singh Payer ID:[id number] (NAIC) Type:HMO Address: [address] [place], [place] Advance Directives For more information, please contact: [phone] (9AM - 5PM [facility], Saturday-Saturday) Documents on File Type Date Recorded Patient Reuse Technician Expl anation Healthcare Proxy 12/11/2024 4:22 PM Care Teams Icu Nurse Relationship Specialty Start Date End Date Brandon Wisdom MD [address] [place] [phone] PCP - General Family Medicine 11/05/24 Additional Source Comments The information contained in this document represents components of the legal health record. It is not the complete legal health record.[facility]
== END 2025-09-27 16:17 | disposition home or self-care (01) ==
LOC: HO.HMGAL 16:16
PROVIDERS: PCP Family Medicine; Visit Provider Registered Nurse Emergency
DX: J30.89 Other allergic rhinitis (principal)
CPT/HCPCS: 95117; 95165

== ENCOUNTER 2025-10-18 16:10 | Outpatient (AMB) | payer BC, SELFPAY ==
--- OUTSIDE RECORDS SUMMARY | 2025-10-18 18:47 | XMS_ITS | Encounter Summary ---
Author Organization [facility] Address [address] [place] [address] [place] [phone] Phone Care Team Providers Care Pulp Mixer Name Role Phone Brandon Wisdom MD Primary Care Provider + Encounter Details Date Type Department Care Team (Late st Contact Info) Description 12/08/2024 Procedure Pass [facility] [address] [place] [address] Social History Tobacco Use Types [...] on filedocumented in this encounter Care Teams Pulp Mixer Relationship Specialty Start Date End Date Brandon Wisdom MD [address] [place] [id number] PCP - General Family Medicine 11/05/24 documented as of this encounter Additional Source Comments The information contained in this document represents components of the legal health record. It is not the complete legal health record.[facility]
--- OUTSIDE RECORDS SUMMARY | 2025-10-18 18:47 | XMS_ITS | Clinical Summary ---
Author Organization [facility] Address [address] [place] [address] Phone Care Team Providers Care Internal Control Analyst Name Role Phone Brandon Wisdom MD Primary [...] this topic Medical Devices Implanted Type Area Theatrical Agent Device Identifier Shelf Expiration Date Model / Serial / Lot Iud Control Device Interstem STANDARD Description:Right flank Protector Nerve 40x3.5mm Porcine Multi Laminar Extracellular Matrix Wrap Injured Periph Reinforce Coaptation Site Prevent - [id number] Implanted:Qty: 1 on 12/08/2024 by Sandra Chi MD at [facility] [place] Right: Wrist [employer] 06/29/2025 [id number] / / [id number] Description:The implant type , laterality ( when applicable) size, expiration date, and package integrity have been visually and verbally confirmed by the Surgeon, Circulating RN, and Scrub Personnel. Insurance [facility] [address] [place] [address] Member Subscriber Plan / Payer ( fective 2024-Present) Name:Monse Singh Relation to Subscriber:Self Name:Monse Singh Payer ID:[id number] (NAIC) Type:HMO Address: [address] [facility] Member Subscriber Plan / Payer ( fective 2024-Present) Name:Monse Singh Relation to Subscriber:Self Name:Monse Singh Payer ID:[id number] (NAIC) Type:HMO Address: [address] [place], [place] Advance Directives For more information, please contact: [phone] (9AM - 5PM [facility], Saturday-Saturday) Documents on File Type Date Recorded 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 It is not the complete legal health record.[facility]
== END 2025-10-18 16:11 | disposition home or self-care (01) ==
LOC: HO.HMGAL 16:10
PROVIDERS: PCP Family Medicine; Visit Provider Registered Nurse Emergency
DX: J30.89 Other allergic rhinitis (principal)
CPT/HCPCS: 95117; 95165